=== PATIENT | male | born 1985 | race Caucasian/White ===

== ENCOUNTER 2017-03-16 00:15 | Emergency (ER) | payer OTHER | END 2017-03-16 01:42 | disposition other institution (70) | LOC: ED 00:15 | DX: Z02.89 Encounter for other administrative examinations (principal); S00.83XA Contusion of other part of head, initial encounter; S00.31XA Abrasion of nose, initial encounter; Y04.2XXA Assault by strike against or bumped into by another person, initial encounter; Y93.89 Activity, other specified; Y99.8 Other external cause status; Y92.89 Other specified places as the place of occurrence of the external cause ==

== ENCOUNTER 2017-03-16 00:15 | Emergency (ER) | payer OTHER ==
[2017-03-16 01:42] VITALS: BP 116/87
== END 2017-03-16 01:42 | disposition other institution (70) ==
LOC: ED 00:15
DX: S00.83XA Contusion of other part of head, initial encounter (principal); S00.31XA Abrasion of nose, initial encounter; M79.1 Myalgia; Z02.89 Encounter for other administrative examinations; Y04.2XXA Assault by strike against or bumped into by another person, initial encounter; Y93.89 Activity, other specified; Y99.8 Other external cause status; Y92.89 Other specified places as the place of occurrence of the external cause

== ENCOUNTER 2017-04-09 07:27 | Emergency (ER) | payer OTHER ==
[~2017-04-09] VITALS: Ht 172.7 cm; Wt 81.6 kg
[2017-04-09 10:36] VITALS: BP 139/84
== END 2017-04-09 10:36 | disposition home or self-care (01) ==
LOC: ED 07:27
DX: S62.515B Nondisplaced fracture of proximal phalanx of left thumb, initial encounter for open fracture (principal); W45.8XXA Other foreign body or object entering through skin, initial encounter; Y93.89 Activity, other specified; Y99.8 Other external cause status; Y92.89 Other specified places as the place of occurrence of the external cause
CPT/HCPCS: 90715; A4570; J0690; J2001; J3490; Q0092